=== PATIENT | female | born 1955 | race Asian ===

== ENCOUNTER → 2022-06-24 | Emergency (ER) | payer OTHER ==
[~2022-06-24] VITALS: Ht 162.6 cm; Wt 65.3 kg
[~2022-06-24] MED LIST: ACID REDUCER20 MG PO; AMLODIPINE BESYLATE PO; ASPI81TA4 PO; BASAGLAR K100 UNIT/M SC; CLON0.1T16 PO; CLOPIDOGREL75 MG PO; FLUOXETINE20 MG PO; GABA300C2 PO; HYDR10TA47 PO; JARDIANCE10 MG PO; LABETALOL300 MG PO; LIPITOR40 MG PO; TYLENOL325 MG PO; XALATAN0.005 % IO
[2022-06-24 14:44] VITALS: BP 144/61; TEMP 97.6
[2022-06-24 15:07] LABS: PLATELET COUNT 512 K/uL (152-353)
[2022-06-24 15:14] LABS: POTASSIUM 4.1 mmol/L (3.6-5.2)
== END ==
LOC: ED 14:35
PROVIDERS: Emergency Medicine
DX: F41.8 Other specified anxiety disorders (principal); R45.1 Restlessness and agitation; F22 Delusional disorders; D64.89 Other specified anemias; E86.0 Dehydration; Z11.52 Encounter for screening for COVID-19; Z04.6 Encounter for general psychiatric examination, requested by authority
CPT/HCPCS: 80053; 85027; 87635; 93005; 99283; U0003